=== PATIENT | female | born 1995 | race Caucasian/White ===

== ENCOUNTER 2017-01-05 13:10 | Emergency (ER) | payer SELFPAY ==
[~2017-01-05 13:10] MED LIST: DORYX PO; Z.0.NO CURRENT MEDS
[2017-01-05 13:12] VITALS: BP 135/75; PULSE 98; RESP 18; TEMP 98.6; O2SAT 100
--- NOTE | 2017-01-05 14:48 | RADRPT ---
EXAM DATE/TIME: 01/05/2017 14:19 [facility] COMPARISON: No previous studies available for comparison. INDICATIONS : Ceiling tile fell on head yesterday RADIATION DOSE: 56.35 CTDIvol (mGy) MEDICAL HISTORY : None SURGICAL HISTORY : None. ENCOUNTER: Initial ACUITY: 2 days PAIN SCALE: 0/10 LOCATION: cranial TECHNIQUE: Multiple contiguous axial images were obtained of the head. Using automated exposure control and adj ustment of the mA and/or kV according to patient size, radiation dose was kept as low as reasonably a chievable to obtain optimal diagnostic quality images. DICOM format image data is available electro nically for review and comparison. FINDINGS: CEREBRUM: The ventricles are normal for age. No evidence of midline shift, mass lesion, hemorrhage or acute in farction. No extra-axial fluid collections are seen. POSTERIOR FOSSA: The cerebellum and brainstem are intact. The 4th ventricle is midline. The cerebellopontine angle i s unremarkable. EXTRACRANIAL: The visualized portion of the orbits is intact. SKULL: The calvaria is intact. No evidence of skull fracture. CONCLUSION: Normal examination. Harvey Lai MD on January 05, 2017 at 14:45 Board Certified Radiologist. This report was verified electronically.
--- NOTE | 2017-01-05 14:57 | RADRPT ---
EXAM DATE/TIME: 01/05/2017 14:17 [facility] COMPARISON: No previous studies available for comparison. INDICATIONS : Ceiling tile fell on head yesterday RADIATION DOSE: 32.48 CTDIvol (mGy) MEDICAL HISTORY : None SURGICAL HISTORY : None. ENCOUNTER: Initial ACUITY: 2 days PAIN SCALE: 0/10 LOCATION: neck TECHNIQUE: Volumetric scanning of the cervical spine was performed. Multiplanar reconstructions in the sagittal, coronal and oblique axial planes were performed. Using automated exposure control and adjustment o f the mA and/or kV according to patient size, radiation dose was kept as low as reasonably achievable to obtain optimal diagnostic quality images. DICOM format image data is available electronically f or review and comparison. FINDINGS: VERTEBRAE: Normal vertebral body height. No fracture is identified. ALIGNMENT: There is no anterolisthesis or retrolisthesis. The craniocervical junction and C1-C2 level demonstrate no abnormality. C2-C3: The bony spinal canal is normal in size. No evidence of disc bulge or herniation. The neural forami na are bilaterally patent. C3-C4: The bony spinal canal is normal in size. No evidence of disc bulge or herniation. The neural forami na are bilaterally patent. C4-C5: The bony spinal canal is normal in size. No evidence of disc bulge or herniation. The neural forami na are bilaterally patent. C5-C6: The bony spinal canal is normal in size. No evidence of disc bulge or herniation. The neural forami na are bilaterally patent. C6-C7: The bony spinal canal is normal in size. No evidence of disc bulge or herniation. The neural forami na are bilaterally patent. C7-T1: The bony spinal canal is normal in size. No evidence of disc bulge or herniation. The neural forami na are bilaterally patent. CONCLUSION: Normal examination of the cervical spine. Harvey Hein MD on January 05, 2017 at 14:53 Board Certified Radiologist. This report was verified electronically.
[2017-01-05] MEDS ORDERED: BIRTH CONTROL (15:51)
[2017-01-05] MEDS ORDERED: ZOFR4TAB PO (15:58)
[2017-01-05] MEDS ORDERED: CYCL5TAB PO (15:58)
[2017-01-05] MEDS ORDERED: ONDANSETRON ODT 4 MG TAB PO ONE (16:00)
[2017-01-05] MEDS ORDERED: ACETAMINOPHEN 325 MG TAB PO ONE (16:00)
--- NOTE | 2017-01-05 16:03 | PD ---
HPI Chief Complaint: Head Injury Time Seen by Provider: 15:57 Travel History International Travel<30 days: Yes Contact w/Intl Traveler<30days: [place] Traveled to: [facility] Traveled to known affect area: No History of Present Illness HPI 21-year-old female here for evaluation of closed head injury. She reports a history at 10 PM some tiling from a [place] ceiling fell and hit her on her occipital scalp. There is no loss of consciousness but since then she has had a dog several headache as well as neck pain. Pain is constant but worse when she is lying down or moving her neck. She reports some nausea and one of the emesis yesterday. Denies any blurred vision, focal weakness, confusion or amnesia. She is not on any anticoagulants. She has no other complaints at this time. [facility] Past Medical History ?: Unknown LMP: 12/06/16 Social History Alcohol Use: Yes Tobacco Use: No Allergies-Medications (Allergen,Severity, Reaction): Coded Allergies: No Known Allergies (Verified Allergy, Mild, 01/30/06) Reported Meds & Prescriptions Reported Meds & Active Scripts Active Flexeril (Cyclobenzaprine HCl) 5 Mg Tab 5 Mg PO TID 5 Days Zofran (Ondansetron HCl) 4 Mg Tab 4 Mg PO Q6HR PRN Reported [ Control] Review of Systems Except as stated in HPI: all other systems reviewed are Neg Physical Exam Narrative GENERAL: Well-developed well-nourished female in no acute distress. Conversive. SKIN: Warm and dry. HEAD: Atraumatic. Normocephalic. EYES: Pupils equal and round. No scleral icterus. No injection or drainage. ENT: No nasal bleeding or discharge. Mucous membranes pink and moist. NECK: Trachea midline. No JVD. CARDIOVASCULAR: Regular rate and rhythm. No murmur appreciated. RESPIRATORY: No accessory muscle use. Clear to auscultation. Breath sounds equal bilaterally. MUSCULOSKELETAL: No obvious deformities. There is some tenderness to palpation of the cervical paravertebral musculature. The patient intends full range of motion of the neck. NEUROLOGICAL: Awake and alert. No obvious cranial nerve deficits. Motor grossly within normal limits. Normal speech. Data Data Last Documented VS Vital Signs Date Time Temp Pulse Resp B/P (MAP) Pulse Ox O2 Delivery O2 Flow Rate FiO2 01/05/17 13:12 98.6 98 18 135/75 (95) 100 Room Air Orders Orders Ct Cerv Spine W/O Contrast (01/05/17 ) Ct Brain W/O Iv Contrast(Rout) (01/05/17 ) Ed Urine Pregnancytest Poc (01/05/17 13:22) Acetaminophen (Tylenol) (01/05/17 16:00) Ondansetron Odt (Zofran Odt) (01/05/17 16:00) Ed Discharge Order (01/05/17 15:57) MDM Medical Decision Making Medical Screen Exam Complete: Yes Emergency Medical Condition: Yes Medical Record Reviewed: Yes Differential Diagnosis Closed head injury, concussion, intracranial hemorrhage, skull fracture, cervical strain, spinal fracture, spinal cord contusion Narrative Course CT imaging of the brain and cervical spine were ordered by triage provider and they are unremarkable. The patient appears to have a closed head injury and strain to her cervical spine. She is being given prescriptions for Flexeril and Zofran. Diagnosis Primary Impression: Closed head injury Qualified Codes: S09.90XA - Unspecified injury of head, initial encounter Additional Impression: Cervical strain Qualified Codes: S16.1XXA - Strain of muscle, fascia and tendon at neck level , initial encounter Additional Instructions: Medication as needed. Do not drive or drink alcohol when taking Flexeril as an May cause sedation. Take Tylenol or Motrin for pain. Follow-up with primary care and return for any emergent medical conditions. Med/Other Pt SpecificInfo: Prescription(s) given Scripts Cyclobenzaprine (Flexeril) 5 Mg Tab 5 MG PO TID for Muscle Spasm for 5 Days, #15 TAB 0 Refills Prov: Angie Osorio DO 01/05/17 Ondansetron (Zofran) 4 Mg Tab 4 MG PO Q6HR Y for NAUSEA OR VOMITING, #20 TAB 0 Refills Prov: Angie Osorio DO 01/05/17 Disposition: 01 DISCHARGE HOME Condition: Stable [place] Jan 05, 2017 16:03
== END 2017-01-05 16:37 | disposition home or self-care (01) ==
LOC: NEPK 13:10
DX: S09.90XA Unspecified injury of head, initial encounter (principal); S16.1XXA Strain of muscle, fascia and tendon at neck level, initial encounter; R11.2 Nausea with vomiting, unspecified; W20.1XXA Struck by object due to collapse of building, initial encounter
CPT/HCPCS: 70450; 72125; 84703